=== PATIENT | female | born 1945 | race Native Hawaiian/Other Pacific Islander ===

== ENCOUNTER 2017-08-07 12:52 | Emergency (ER) | payer MEDICARE, MEDICAID ==
[~2017-08-07] VITALS: Ht 154.9 cm; Wt 68.0 kg
[2017-08-07 13:01] VITALS: BP 202/104
== END 2017-08-07 14:20 | disposition home or self-care (01) ==
LOC: ER 12:52
DX: M25.511 Pain in right shoulder (principal); M25.551 Pain in right hip; M19.90 Unspecified osteoarthritis, unspecified site; E78.5 Hyperlipidemia, unspecified; I10 Essential (primary) hypertension; V43.52XA Car driver injured in collision with other type car in traffic accident, initial encounter; Y93.89 Activity, other specified; Y92.89 Other specified places as the place of occurrence of the external cause; Y99.8 Other external cause status